=== PATIENT | male | born 1985 | race Asian ===

== ENCOUNTER 2017-06-17 21:35 | Emergency (ER) | payer OTHER ==
[~2017-06-17] VITALS: Ht 183 cm; Wt 81.6 kg
[~2017-06-17 21:35] MED LIST: PERCOCET 325 MG1 TA3 PO
== END 2017-06-17 22:16 | disposition home or self-care (01) ==
LOC: ED 21:35
DX: E04.9 Nontoxic goiter, unspecified (principal); Z88.1 Allergy status to other antibiotic agents